=== PATIENT | male | born 1955 | race Two or more races ===

== ENCOUNTER 2017-03-02 09:36 | Emergency (ER) | payer OTHER ==
[~2017-03-02] VITALS: Ht 185.4 cm; Wt 97.5 kg
[2017-03-02 11:00] VITALS: BP 128/72
[2017-03-02] MEDS ORDERED: TETANUS-DIPTH-ACEL PERTUSSIS 0.5ML SYRG IM ONE (11:15)
== END 2017-03-02 13:12 | disposition home or self-care (01) ==
LOC: ER 09:36
DX: T23.001A Burn of unspecified degree of right hand, unspecified site, initial encounter (principal); T21.04XA Burn of unspecified degree of lower back, initial encounter; S39.012A Strain of muscle, fascia and tendon of lower back, initial encounter; E11.9 Type 2 diabetes mellitus without complications; Z23 Encounter for immunization; W86.8XXA Exposure to other electric current, initial encounter; Y93.89 Activity, other specified; Y99.8 Other external cause status; Y92.89 Other specified places as the place of occurrence of the external cause
CPT/HCPCS: 72220; 90471; 90715; 93005

== ENCOUNTER 2024-03-29 07:03 | Emergency (ER) | payer OTHER ==
[~2024-03-29] VITALS: Ht 172.7 cm; Wt 81.8 kg
[2024-03-29 08:00] VITALS: RESP 18; O2SAT 96
[2024-03-29 08:01] VITALS: PULSE 85; O2SAT 96
[2024-03-29 09:13] LABS: Basophils # (auto) 0 10 ^3/uL (0-0.2); Basophils % (auto) 0.7 % (0.0-2.0); Eosinophils # (auto) 0.1 10 ^3/uL (0-0.8); Eosinophils % (auto) 1.8 % (0.0-7.0); Hematocrit 38.4 % (41.0-53.0); Lymphocytes # (auto) 1.5 10 ^3/uL (0.4-5.4); Lymphocytes % (auto) 30.3 % (10.0-50.0); Mean Corpuscular Hemoglobin 30.4 pg (28.0-32.0); Mean Corpuscular Hgb Conc. 33.8 g/dL (32.0-36.0); Mean Corpuscular Volume 89.9 fL (80.0-100.0); Monocytes # (auto) 0.4 10 ^3/uL (0-1.3); Monocytes % (auto) 8.2 % (0.0-12.0); Neutrophils # (auto) 2.9 10 ^3/uL (1.6-8.6); Nucleated Red Blood Cells % 0.2 %; Red Blood Cells 4.27 10^6/uL (4.5-5.90); Red Cell Distribution Width 15.2 % (11.8-14.3)
[2024-03-29 09:15] LABS: Anion Gap 7 (5-15); Carbon Dioxide 27 mmol/L (20-30); Chloride 103 mmol/L (98-107); Potassium 3.7 mmol/L (3.5-5.1); Sodium 137 mmol/L (136-145)
[2024-03-29 09:16] LABS: Calcium 10.5 mg/dL (8.5-10.1)
[2024-03-29 09:21] LABS: BUN/Creatinine Ratio 18.8 (10.0-20.0); Blood Urea Nitrogen 13 mg/dL (9-23); Glucose 100 mg/dL (74-106)
[2024-03-29] MEDS: SODIUM CHLORIDE 0.9% 500 ML IV ONE (09:29)
[2024-03-29] MEDS: KETOROLAC TROMETH 30 MG/ML 1ML VIAL IV ONE (09:29)
[2024-03-29] MEDS ORDERED: BACDST PO (10:55)
[2024-03-29] MEDS ORDERED: HYDR-4902 PO (13:37)
[2024-03-29 13:46] VITALS: BP 147/98; PULSE 81; RESP 16; TEMP 98; O2SAT 97
== END 2024-03-29 13:50 | disposition home or self-care (01) ==
LOC: EDBD 07:03 → ER 07:03
DX: N20.0 Calculus of kidney (principal); I48.91 Unspecified atrial fibrillation; E11.9 Type 2 diabetes mellitus without complications; I10 Essential (primary) hypertension; Z86.73 Personal history of transient ischemic attack (TIA), and cerebral infarction without residual deficits; Z87.442 Personal history of urinary calculi
CPT/HCPCS: 36415; 74018; 80048; 85025; 96374; 99284; J1885; 96361